=== PATIENT | male | born 1985 | race Caucasian/White ===

== ENCOUNTER 2016-09-09 13:21 | Emergency (ER) | payer OTHER ==
[2016-09-09 13:29] VITALS: BP 133/68; PULSE 80; TEMP 98.4; BMI 31.4
--- NOTE | 2016-09-09 14:23 | PDOC ---
Post Exposure HPI - General Chief Complaint: Non EmpBld/Body Flud Exposure Stated Complaint: STUCK BY NEEDLE - History of Present Illness Initial Comments: 09/09/16 14:13 CHIEF COMPLAINT: HISTORY OF PRESENT ILLNESS: 31 yo M with no PMH presents to ED s/p getting stuck by a needle in his car approximately 1 hour ago . Patient states he was cleaning out a car that he bought 3 months ago and when he reached under a seat he felt a prick and saw that it was a used insulin needle. He denies any fever, nausea, vomiting, diarrhea, or other symptoms. Patient received Tdap in this ER 3 years ago. No recent travel or sick contacts. PAST MEDICAL HISTORY: Denies past medical history FAMILY HISTORY: Denies SOCIAL HISTORY: Denies tobacco, alcohol, illicit drug use. SURGICAL HISTORY: Denies ALLERGIES: No known drug allergies REVIEW OF SYSTEMS General/Constitutional: Denies fever or chills. Denies weakness, weight change. HEENT: Denies change in vision. Denies ear pain or discharge. Denies sore throat. Cardiovascular: Denies chest pain or shortness of breath. Respiratory: Denies cough, wheezing, or hemoptysis. Gastrointestinal: Denies nausea, vomiting, diarrhea or constipation. Denies rectal bleeding. Genitourinary: Denies dysuria, frequency, or change in urination. Musculoskeletal: Denies joint or muscle swelling or pain. Denies neck or back pain. Skin and breasts: "I had a small prick on my finger, it bled like a drop but it' s fine now." Denies rash or easy bruising. Neurologic: Denies headache, vertigo, loss of consciousness, or loss of sensation. PHYSICAL EXAM General Appearance: Well-appearing, appropriately dressed. No apparent distress. HEENT: EOMI, PERRLA, normal ENT inspection, normal voice, TMs normal, pharynx normal. No conjunctival pallor. No photophobia, scleral icterus. Neck: Supple. Trachea midline. No tenderness, rigidity, carotid bruit, stridor , lymphadenopathy, or thyromegaly. Respiratory/Chest: Lungs CTAB. Cardiovascular: RRR. S1, S2. Gastrointestinal/Abdominal: Normal bowel sounds. Abdomen soft, non-distended. No tenderness or rebound tenderness. No organomegaly, pulsatile mass, guarding , hernia, hepatomegaly, splenomegaly. Musculoskeletal/Extremities: Normal inspection. FROM of all extremities, normal capillary refill. Pelvis Stable. No CVA tenderness. No tenderness to extremities, pedal edema, swelling, erythema or deformity. Integumentary: Appropriate color, dry, warm. No cyanosis, erythema, jaundice or rash Neurologic: music composer II-XII intact. Fully oriented, alert. Appropriate mood/affect. Motor strength 5/5. No appreciable EOM palsy, facial droop or sensory deficit. 09/09/16 14:35 09/09/16 14:36 Past History - Past Medical History Allergies/Adverse Reactions: Allergies No Known Allergies Allergy (Verified 09/09/16 13:25) Home Medications: Ambulatory Orders NK [No Known Home Medication] 09/09/16 - Immunization History Tetanus Status: Unknown - Social History Smoking Status: Never smoked Number of Ciarettes Per Day: 2 *Physical Exam - Vital Signs Last Vital Signs Temp Pulse Resp BP Pulse Ox 98.4 F 80 18 133/68 100 09/09/16 13:26 09/09/16 13:26 09/09/16 13:26 09/09/16 13:26 09/09/16 13:26 Medical Decision Making - Medical Decision Making 09/09/16 14:36 31 yo M with no PMH presents to ED s/p getting stuck by a needle in his car approximately 1 hour ago . PAtient is UTD with tetanus Patient states he does not want to start any prophylactic medication but would like to get tested for HIV and Hep C. Advised patient we will call with any positive results. Advised patient that seroconversion does not happen immediately and follow up testing in 6-8 weeks is recommended. Patient verbalized understanding and states he will f/u with his PMD in 6-8 weeks for further testing. 09/09/16 14:39 *DC/Admit/Observation/Transfer Diagnosis at time of Disposition: Needle stick injury of finger - Discharge Dispostion Disposition: HOME Condition at time of disposition: Stable Admit: No - Referrals Referrals: Neftaly Washington MD [Primary Care Provider] - - Patient Instructions Printed Discharge Instructions: How to Handle Body Fluid Exposure -- Non- Healthcare Worker (At Home, Caregi Additional Instructions: As discussed, the risk of infection from a needlestick from a needle that has been in your car for 3 months is very low, but there is still a risk. It is advised that you follow up with your primary care doctor for repeat testing. If you experience any fever, nausea, vomiting, diarrhea, sore throat, fatigue, or any new or worsening symptoms, please return to the ER.
[2016-09-09 15:27] LABS: HIV 1 & 2 AB NEGATIVE; HIV 1 AGp24 NEGATIVE
[2016-09-11 06:06] LABS: HEP B SURFACE AB Reactive (.)
== END 2016-09-09 16:40 | disposition home or self-care (01) ==
LOC: JERFT 13:21
DX: S61.230A Puncture wound without foreign body of right index finger without damage to nail, initial encounter (principal); W46.1XXA Contact with contaminated hypodermic needle, initial encounter; Y93.89 Activity, other specified; Y92.89 Other specified places as the place of occurrence of the external cause; Y99.8 Other external cause status
CPT/HCPCS: 36415; 86704; 86706; 87340; 87389; 99281-25

== ENCOUNTER 2019-06-10 22:15 | Emergency (ER) | payer OTHER ==
[2019-06-10 22:30] VITALS: BP 124/74; PULSE 110; BMI 25.2
--- NOTE | 2019-06-10 23:58 | PDOC ---
Attending Attestation - Resident Resident Name: AreliJena - ED Attending Attestation I have performed the following: I have examined & evaluated the patient, The case was reviewed & discussed with the resident, I agree w/resident's findings & plan - HPI HPI: 06/11/19 00:05 see resident hpi - Physicial Exam PE: 06/11/19 00:06 see resident exam - Medical Decision Making 06/11/19 00:07 33-year-old male with body aches and cough as well as fevers at home Plan for basic labs, IV fluids and analgesics due to clinical dehydration on exam Plan for DC home pending results and reevaluation
[2019-06-11] MEDS ORDERED: ACETAMINOPHEN 1000 MG/100 ML VIAL (NON FORMULARY) IVPB ONE (00:06)
[2019-06-11] MEDS ORDERED: SODIUM CHLORIDE 1,000 ML IV STA (00:06)
[2019-06-11] MEDS ORDERED: ACETAMINOPHEN INJECTION 100 ML IVPB ONE (00:16)
[2019-06-11 00:51] LABS: BASO % 0.2 % (0-2.0); EOS % 0.1 % (0-4.5); HEMATOCRIT 43.9 % (35.4-49); LYMPH % 5.8 % (8-40); MCH 29.9 pg (25.7-33.7); MCHC 34.1 g/dl (32.0-35.9); MEAN CELL VOLUME 87.9 fl (80-96); MEAN PLT VOLUME 8.4 fl (7.5-11.1); MONO % 6.8 % (3.8-10.2); NEUT % 87.1 % (42.8-82.8); PLATELET COUNT 178 K/MM3 (134-434); RDW 14.2 % (11.9-15.9); WHITE BLOOD COUNT 8.6 K/mm3 (4.0-10.0)
[2019-06-11 01:12] LABS: ALBUMIN 4.2 g/dl (3.4-5.0); BILIRUBIN,TOTAL 0.5 mg/dL (0.2-1); CALCIUM 8.6 mg/dL (8.5-10.1); CREATININE 0.8 mg/dL (0.55-1.3); POTASSIUM 3.7 mmol/L (3.5-5.1); TOT PROT 7.1 g/dl (6.4-8.2)
--- NOTE | 2019-06-11 01:14 | PDOC ---
History of Present Illness - General Chief Complaint: Cold Symptoms Stated Complaint: FEVER/HEADACHE/NAUSEA/APPETITE LOSS Time Seen by Provider: 06/10/19 23:45 History Source: Patient Exam Limitations: No Limitations - History of Present Illness Initial Comments: 06/11/19 02:04 33y M with no significant PMH presenting to ED with complaints of body aches, joint pains, fever, headache x3 days. Pt states he went to urgent care 3d ago for similar symptoms but was flu negative. Symptoms have not gone away. Pt reports fever of 101 at home and has been taking 400mg Advil for the fevers. He also states loss of appetite. Denies rash, chest pain, sob, sore throat, n/v/d, recent travel, sick contacts. PMd; PMH: none PSH: none Meds: none Allergies: nkda Past History - Past Medical History Allergies/Adverse Reactions: Allergies Allergy/AdvReac Type Severity Reaction Status Date / Time No Known Allergies Allergy Verified 09/09/16 13:25 Home Medications: Ambulatory Orders NK [No Known Home Medication] 09/09/16 Asthma: Yes COPD: No - Psycho Social/Smoking Cessation Hx Smoking History: Never smoked Have you smoked in the past 12 months: Yes Number of Cigarettes Smoked Daily: 2 Hx Alcohol Use: No Drug/Substance Use Hx: No Substance Use Type: Alcohol Review of Systems - Review of Systems Constitutional: Yes: Symptoms Reported HEENTM: Yes: See HPI Respiratory: No: Symptoms reported Cardiac (ROS): No: Symptoms Reported ABD/GI: Yes: See HPI : No: Symptoms Reported Musculoskeletal: Yes: See HPI Integumentary: No: Symptoms Reported Neurological: No: Symptoms reported *Physical Exam - Vital Signs Last Vital Signs Temp Pulse Resp BP Pulse Ox 99.8 F H 110 H 20 124/74 96 06/10/19 22:26 06/10/19 22:26 06/10/19 22:26 06/10/19 22:26 06/10/19 22:26 - Physical Exam General Appearance: Yes: Nourished, Appropriately Dressed. No: Apparent Distress HEENT: positive: EOMI, [place], Pharynx Normal, Other (dry mucosa). negative: Pharyngeal Erythema, Tonsillar Exudate, Tonsillar Erythema Neck: positive: Trachea midline, Supple. negative: Lymphadenopathy (R), Lymphadenopathy (L) Respiratory/Chest: positive: Lungs Clear, Normal Breath Sounds. negative: Crackles, Rales, Rhonchi, Stridor, Wheezing, Plerual Rub Cardiovascular: positive: Regular Rhythm, Regular Rate, S1, S2. negative: Edema , JVD, Murmur Gastrointestinal/Abdominal: positive: Normal Bowel Sounds, Soft. negative: Tender Musculoskeletal: negative: CVA Tenderness Extremity: positive: Normal Capillary Refill. negative: Swelling Integumentary: positive: Normal Color, Dry, Warm Neurologic: positive: stakes player II-XII NML intact, Fully Oriented, Alert, Normal Mood/ Affect, Normal Response, Motor Strength 09/14 ED Treatment Course - LABORATORY CBC & Chemistry Diagram: 06/11/19 00:33 06/11/19 00:33 - ADDITIONAL ORDERS Additional order review: Laboratory Results 06/11/19 00:33 Sodium 137 Potassium 3.7 Chloride 103 Carbon Dioxide 24 Anion Gap 10 BUN 9.0 Creatinine 0.8 Est GFR (CKD-EPI)AfAm 137.96 Est GFR (CKD-EPI)NonAf 119.03 Random Glucose 137 H Calcium 8.6 Total Bilirubin 0.5 AST 37 ALT 50 Alkaline Phosphatase 60 Total Protein 7.1 Albumin 4.2 06/11/19 00:33 RBC 5.00 MCV 87.9 MCHC 34.1 RDW 14.2 MPV 8.4 Neutrophils % 87.1 H Lymphocytes % 5.8 L Monocytes % 6.8 Eosinophils % 0.1 Basophils % 0.2 - RADIOLOGY Radiology Studies Ordered: Category Date Time Status CHEST PA & LAT [RAD] Stat Radiology 06/11/19 00:06 Taken - Medications Given in the ED: ED Medications Discontinued Medications Generic Name Dose Route Start Last Admin Trade Name Freq PRN Reason Stop Dose Admin Acetaminophen 1,000 mg 06/11/19 00:06 06/11/19 00:42 Ofirmev Injection - IVPB 06/11/19 00:07 1,000 mg ONCE ONE Administration Sodium Chloride 1,000 mls @ 1,000 mls/hr 06/11/19 00:06 06/11/19 00:42 Normal Saline - IV 06/11/19 01:05 1,000 mls/hr ASDIR STA Administration Medical Decision Making - Medical Decision Making 06/11/19 02:06 33y M presenting with cold like symptoms. flu v. uri. low suspicion for meningitis given lack of meningeal signs, no photophobia. outside window of tamiflu. will get basic labs, cxr, ivf, ofirmev, reassess. cxr unremarkable. labs wnl, no leukocytosis. pt feeling better. will dc home. will advise to f/u with pmd. Discharge - Discharge Information Problems reviewed: Yes Clinical Impression/Diagnosis: Viral illness Condition: Improved Disposition: HOME - Admission No - Follow up/Referral - Patient Discharge Instructions Patient Printed Discharge Instructions: DI for Viral Upper Respiratory Infection -- Adult Additional Instructions: You were seen in the emergency room today for cold/flu like symptoms. This is likely a viral illness. Keep yourself well hydrated. You can take Tylenol every 4 hours and ibuprofen/ Advil every 6 hours for fever and pain. Please make an appointment with your primary care doctor in the next few days regarding this ED visit. come back to the emergency room if fever continues for over 1 week, headache gets worse, you develop rash, you have difficulty breathing or if any new or concerning symptom develops. Thank you - Post Discharge Activity Work/Back to School Note: Back to Work
[2019-06-11 01:56] VITALS: TEMP 99.3
== END 2019-06-11 01:56 | disposition home or self-care (01) ==
LOC: JER 22:15
PROC: 3E033NZ Introduction of Analgesics, Hypnotics, Sedatives into Peripheral Vein, Percutaneous Approach (ICD-10-PCS; principal; 2019-06-10)
DX: J06.9 Acute upper respiratory infection, unspecified (principal); B97.89 Other viral agents as the cause of diseases classified elsewhere; J45.909 Unspecified asthma, uncomplicated
CPT/HCPCS: 36415; 71046-TC-FY; 80053; 85025; 99282-25; J0131; J7030

== ENCOUNTER 2019-07-06 06:34 | Emergency (ER) | payer OTHER ==
[2019-07-06 07:23] VITALS: BP 127/65; PULSE 74; TEMP 98.1; BMI 21.3
--- NOTE | 2019-07-06 07:44 | PDOC ---
History of Present Illness - General History Source: Patient Exam Limitations: No Limitations - History of Present Illness Initial Comments: 07/06/19 07:39 Patient is a 34-year-old male with no past medical history who presents to the ED with complaint of sharp midsternal chest pain that is reproducible for the last 5 days. He states that the pain was initially in the anterior axillary line and it was intermittent. Last night the patient took aspirin and went to sleep. He states the aspirin helped his pain. He woke up this morning and the pain was midsternal and constant. He became concerned and came to the ED for evaluation. He denies any recent long travel in a car or plane. He denies any history of clotting disorders. The patient is a smoker. <Mariama Delgado - Last Filed: 07/06/19 10:04> <Miguel Figueroa - Last Filed: 07/06/19 14:53> - General Chief Complaint: Chest Pain Stated Complaint: CHEST PAIN Time Seen by Provider: 07/06/19 07:21 Past History - Past Medical History Asthma: Yes COPD: No - Psycho Social/Smoking Cessation Hx Smoking History: Current every day smoker Have you smoked in the past 12 months: Yes Number of Cigarettes Smoked Daily: 12 Information on smoking cessation initiated: Yes Hx Alcohol Use: No Drug/Substance Use Hx: No Substance Use Type: Alcohol <Mariama Delgado - Last Filed: 07/06/19 10:04> <Miguel Figueroa - Last Filed: 07/06/19 14:53> - Past Medical History Allergies/Adverse Reactions: Allergies Allergy/AdvReac Type Severity Reaction Status Date / Time No Known Allergies Allergy Verified 09/09/16 13:25 Home Medications: Ambulatory Orders Ibuprofen [Motrin -] 600 mg PO TID PRN #21 tablet 07/06/19 Review of Systems - Review of Systems Comments:: 07/06/19 07:40 - Review of Systems Able to Perform ROS?: Yes Constitutional: No: Fever, Chills, Loss of Appetite, Night Sweats, Weakness HEENTM: No: Eye Pain, Vision changes, Ear Pain, Throat Pain, Throat Swelling, Mouth Pain, Difficulty Swallowing Respiratory: No: Cough, Shortness of Breath, Wheezing, Sputum Production Cardiac (ROS): No: Chest Tightness, Palpitations, Irregular Heart Beat, Edema; positive: Midsternal chest pain ABD/GI: No: Nausea, Vomiting, Abdominal Pain, Diarrhea : No Dysuria, No Hematuria, No Frequency, No Urgency Musculoskeletal: No: Muscle Pain, Back Pain, Joint Pain, Muscle Weakness, Neck Pain Integumentary: No: Lesions, Rash Neurological: No: Headache, Numbness, Tingling, Weakness, Speech Difficulties <Mariama Delgado D - Last Filed: 07/06/19 10:04> *Physical Exam - Vital Signs Last Vital Signs Temp Pulse Resp BP Pulse Ox 98.1 F 74 16 127/65 97 07/06/19 07:18 07/06/19 07:18 07/06/19 07:18 07/06/19 07:18 07/06/19 07:18 - Physical Exam 07/06/19 07:41 - Physical Exam General Appearance: Nourished, Appropriately Dressed, No Distress HEENT: EOMI, Normal Voice, No Muffled/Hoarse voice, No Nasal Congestion, No Rhinorrhea, Hearing Grossly Normal, moist mucosa Neck: Supple, No Lymphadenopathy (R), No Lymphadenopathy (L), No Rigidity, No Decreased range of motion Respiratory/Chest: Lungs Clear, Normal Breath Sounds. No Respiratory Distress, No Accessory Muscle Use Cardiovascular: Regular Rhythm, Regular Rate, S1, S2, reproducible left midsternal chest pain to palpation. No flail chest. Gastrointestinal/Abdominal: Normal Bowel Sounds, Soft. Non-tender, No Guarding , No Rebound, No Rigidity Musculoskeletal: Normal Inspection. No Decreased Range of Motion Extremity: Normal Capillary Refill, Normal Inspection Integumentary: Normal Color, Dry. No Rash Neurologic: mid level net developer II-XII NML intact, Fully Oriented, Alert, Normal Mood/Affect, Normal Response <Francisco Javier Delgadoica D - Last Filed: 07/06/19 10:04> - Vital Signs Last Vital Signs Temp Pulse Resp BP Pulse Ox 98.1 F 74 16 127/65 97 07/06/19 07:18 07/06/19 07:18 07/06/19 07:18 07/06/19 07:18 07/06/19 07:18 <Miguel Figueroa - Last Filed: 07/06/19 14:53> Heart Score/ECG Review - History History: Slightly suspicious - Electrocardiogram EKG: Normal - Age Age: </= 45 - Risk Factors Risk Factors Heart Score: Yes Smoking History Based on the list above the patient has:: 1-2 risk factors - ECG Intrepretation Rhythm: Regular Rhythm - [place]: Normal - ECG Impressions Normal ECG: Yes Comment:: 07/06/19 07:43 Normal sinus rhythm at 70 bpm <Mariama Delgado D - Last Filed: 07/06/19 10:04> ED Treatment Course - LABORATORY CBC & Chemistry Diagram: 07/06/19 08:56 07/06/19 08:56 - RADIOLOGY Radiology Studies Ordered: Category Date Time Status CHEST PA & LAT [RAD] Stat Radiology 07/06/19 07:30 Ordered <Sandy,Mariama D - Last Filed: 07/06/19 10:04> - LABORATORY CBC & Chemistry Diagram: 07/06/19 08:56 07/06/19 08:56 - ADDITIONAL ORDERS Additional order review: Laboratory Results 07/06/19 07/06/19 08:56 08:56 PT with INR 13.40 H INR 1.13 H PTT (Actin FS) 31.4 Sodium 137 Potassium 4.6 Chloride 106 Carbon Dioxide 29 Anion Gap 2 L BUN 11.0 Creatinine 0.7 Est GFR (CKD-EPI)AfAm 144.72 Est GFR (CKD-EPI)NonAf 124.87 Random Glucose 91 Calcium 9.4 Magnesium 2.3 Total Bilirubin 0.9 AST 13 L ALT 24 Alkaline Phosphatase 68 Creatine Kinase 75 Troponin I < 0.02 Total Protein 7.4 Albumin 4.0 07/06/19 08:56 RBC 4.80 MCV 89.7 MCHC 33.5 RDW 14.6 MPV 8.2 Neutrophils % 64.7 D Lymphocytes % 25.8 D Monocytes % 7.7 Eosinophils % 1.2 D Basophils % 0.6 - Medications Given in the ED: ED Medications Discontinued Medications Generic Name Dose Route Start Last Admin Trade Name Freq PRN Reason Stop Dose Admin Ketorolac Tromethamine 15 mg 07/06/19 09:50 07/06/19 10:26 Toradol Injection - IM 07/06/19 09:51 15 mg ONCE ONE Administration <Miguel Figueroa - Last Filed: 07/06/19 14:53> Medical Decision Making - Medical Decision Making 07/06/19 07:43 Assessment: Patient is a 34-year-old male with sharp midsternal chest pain for 5 days. Plan: -EKG done in triage -Chest x-ray ordered -Labs ordered -Will reassess 07/06/19 10:04 The patient has been made aware that his EKG and labs are all within normal limits. His chest pain can be secondary to chest wall pain or costochondritis. The patient has been advised to follow-up with his primary doctor within 1 to 2 days for repeat evaluation. He understands and agrees with this treatment plan and the patient stable for discharge. <Mariama Delgado - Last Filed: 07/06/19 10:04> - Medical Decision Making 07/06/19 14:52 I reviewed the case of the mid-level practitioner and was available for consultation while in the emergency department <Miguel Figueroa - Last Filed: 07/06/19 14:53> Discharge - Discharge Information Problems reviewed: Yes <Mariama Delgado - Last Filed: 07/06/19 10:04> <Miguel Figueroa - Last Filed: 07/06/19 14:53> - Discharge Information Clinical Impression/Diagnosis: Atypical chest pain Condition: Stable Disposition: HOME - Additional Discharge Information Prescriptions: Ibuprofen [Motrin -] 600 mg PO TID PRN #21 tablet PRN Reason: Pain - Follow up/Referral Referrals: Kevon Nelson MD [Staff Physician] - 3 days - Patient Discharge Instructions Patient Printed Discharge Instructions: DI for Atypical Chest Pain Additional Instructions: Get plenty of rest and drink plenty of fluids. Take the ibuprofen as needed for chest wall pain. Be sure to follow-up with your primary doctor within 1 to 2 days for repeat evaluation. You may require further cardiac evaluation as an outpatient. A referral to a athletics teacher has been given to you. - Post Discharge Activity Work/Back to School Note: Back to Work
--- NOTE | 2019-07-06 09:10 | EKG ---
Test Reason : Blood Pressure : / mmHG Vent. Rate : 070 BPM Atrial Rate : 070 BPM P-R Int : 146 ms QRS Dur : 084 ms QT Int : 380 ms P-R-T Axes : 069 083 059 degrees QTc Int : 410 ms NORMAL SINUS RHYTHM NORMAL ECG NO PREVIOUS ECGS AVAILABLE Confirmed by Patricio Billings ([id number]) on 07/06/2019 9:10:38 AM Referred By: Confirmed By:Patricio Billings
[2019-07-06 09:22] LABS: BASO % 0.6 % (0-2.0); EOS % 1.2 % (0-4.5); HEMOGLOBIN 14.4 GM/dL (11.7-16.9); LYMPH % 25.8 % (8-40); MCH 30.1 pg (25.7-33.7); MCHC 33.5 g/dl (32.0-35.9); MEAN CELL VOLUME 89.7 fl (80-96); MEAN PLT VOLUME 8.2 fl (7.5-11.1); MONO % 7.7 % (3.8-10.2); NEUT % 64.7 % (42.8-82.8); PLATELET COUNT 241 K/MM3 (134-434); RDW 14.6 % (11.9-15.9); WHITE BLOOD COUNT 6.4 K/mm3 (4.0-10.0)
[2019-07-06 09:37] LABS: INR 1.13 (0.83-1.09); PROTHROMBIN TIME (PATIENT) 13.4 SEC (9.7-13.0)
[2019-07-06 09:40] LABS: ACTIVATED PTT 31.4 SECONDS (25.2-36.5)
[2019-07-06] MEDS ORDERED: KETOROLAC TROMETHAMINE 15 MG/ML VIAL IM ONE (09:50)
[2019-07-06 09:55] LABS: ALK PHOS 68 U/L (45-117); ANION GAP 2 MMOL/L (8-16); BILIRUBIN,TOTAL 0.9 mg/dL (0.2-1); CALCIUM 9.4 mg/dL (8.5-10.1); CHLORIDE 106 mmol/L (98-107); CO2 29 mmol/L (21-32); CREATININE 0.7 mg/dL (0.55-1.3); GLUCOSE,RANDOM 91 mg/dL (74-106); MAGNESIUM 2.3 mg/dL (1.8-2.4); POTASSIUM 4.6 mmol/L (3.5-5.1); SGOT/AST 13 U/L (15-37); SGPT/ALT 24 U/L (13-61); SODIUM 137 mmol/L (136-145); TOT PROT 7.4 g/dl (6.4-8.2)
[2019-07-06] MEDS ORDERED: KETOROLAC TROMETHAMINE 15 MG/ML VIAL ONE (10:20)
== END 2019-07-06 10:33 | disposition home or self-care (01) ==
LOC: JER 06:34
PROC: 3E0233Z Introduction of Anti-inflammatory into Muscle, Percutaneous Approach (ICD-10-PCS; principal; 2019-07-06)
DX: R07.9 Chest pain, unspecified (principal)
CPT/HCPCS: 36415; 71046-TC-FY; 80053; 82550; 83735; 84484; 85025; 85610; 85730; 93005; 93010; 99285-25